=== PATIENT | female | born 1940 | race Caucasian/White ===

== ENCOUNTER 2016-12-31 14:42 | Inpatient (IN) ==
--- NOTE | 2016-12-31 16:30 | Diag Imaging Result Doc PS360 ---
EXAM: CHEST-1 VIEW INDICATION: FALL COMPARISON: None. FINDINGS: There is a calcified granuloma in the right upper lung zone. The lungs are grossly clear, otherwise. There is no discrete pleural fluid collection. The cardiomediastinal silhouette and central vasculature are grossly unremarkable. IMPRESSION: No evidence of acute pathology. Electronically signed by Gio Vogel 12/31/2016 4:28 PM
--- NOTE | 2016-12-31 16:31 | Diag Imaging Result Doc PS360 ---
EXAM: X-RAY PELVIS W/HIP 2-3VW LT HISTORY: fall COMMENT: There is an intertrochanteric fracture with comminution in the left femur. There is generalized osteopenia of the regional skeleton. IMPRESSION: Left intertrochanteric fracture. Electronically signed by Lang Birmingham 12/31/2016 4:28 PM
[2016-12-31 17:02] LABS: MANUAL DIFF NEEDED? NO
[2016-12-31 17:04] LABS: BASO% 0.1 % (0.0-0.8); HEMATOCRIT 35.5 % (37.0-47.0); HEMOGLOBIN 11.5 g/dL (12.0-16.0); IMM GRAN# 0.02 X1000 (0.0-0.04); IMM GRAN% 0.2 % (0.0-0.5); LYMPH# 0.78 X1000 (1.2-3.4); LYMPH% 8.9 % (20.5-51.1); MCH 31.8 PG (27-31); MCHC 32.4 g/dL (33-37); MCV 98.1 FL (81-99); MONO# 0.64 X1000 (0.11-0.59); MONO% 7.3 % (1.7-9.3); NEUT% 83.5 % (42.2-75.2); PLT 292 X1000 (130-400); RBC 3.62 XMIL (4.2-5.4)
[2016-12-31 17:35] LABS: AGAP 11; ALKALINE PHOSPHATASE 85 U/L (32-104); BUN 13 mg/dL (8-22); CALCIUM 9.4 mg/dL (8.8-10.2); CHLORIDE 101 mmol/L (98-107); COSMO 280; GOT 17 U/L (10-30); GPT 10 U/L (10-36); POTASSIUM 4.4 mmol/L (3.5-5.1); SODIUM 140 mmol/L (136-145); TCO2 28 mmol/L (25-35)
--- NOTE | 2016-12-31 17:59 | PROVIDER DOCUMENTATION ---
This chart was entered by Radha Menard Scribe, acting as scribe for Ander Mitchell MD. HPI-Musculoskeletal Pain/Inj - GENERAL Chief Complaint: Fall Stated Complaint: FALL Time Seen by Provider: 12/31/16 15:44 Source: patient - HX OF PRESENT ILLNESS-MUSKULOSKELTAL Nature of Presenting Problem: Pt is a 76 yof who came to the ED with a cc of falling. Pt reports today she got up and slipped on her left leg. PT left leg is is shortened and everted. Quality of Pain: reports: sharp Severity in ED: moderate Onset/Duration: just prior to arrival Timing: still present Modifying Factors: improves with: movement Locality of Occurance: Home Similar Symptoms Previously?: No Recently seen or treated by another doctor?: No - FALL INJURY Location of Pain/Injury: reports: lower extremity (left) Pain Radiation: reports: no radiation Reason for Fall: reports: tripped Loss of Consciousness: no loss of consciousness Review of Systems - Adult - REVIEW OF SYSTEMS - ADULT Constitutional: denies: chills, fever Eyes: reports: no symptoms reported Ears, Nose, Mouth & Throat: denies: sinus problem, loose teeth Cardiovascular: reports: no symptoms reported Respiratory: reports: no symptoms reported Gastrointestinal: reports: no symptoms reported Genitourinary: reports: no symptoms reported Musculoskeletal: reports: bone pain (left leg). denies: joint swelling, neck pain Integumentary: reports: no symptoms reported Neurological: reports: no symptoms reported Psychiatric: reports: no symptoms reported Endocrine: reports: no symptoms reported Hematologic/Lymphatic: reports: no symptoms reported Allergic/Immunologic: reports: no symptoms reported All Other Systems: Reviewed and Negative Past History - Adult - PAST MEDICAL HISTORY-ADULT Review of Records: reports: Nursing Assessment Review Major Childhood Illnesses: reports: denies history Cardiovascular: reports: HTN Respiratory: reports: denies history Gastrointestinal: reports: denies history Obstetrical/Gynecological: reports: denies history Genitourinary: reports: denies history Musculoskeletal: reports: denies history Neurological: reports: denies history Endocrine/Immune: reports: denies history Other Conditions: reports: denies history - PRIOR SURGERIES/PROCEDURES Surgical/Procedure History: reports: appendectomy, cholecystectomy - IMMUNIZATION STATUS Childhood Immunizations: See Nurse Assessment Flu Vaccine: See Nurse Assessment - FAMILY HISTORY Family History: reviewed, not pertinent Physical Exam-Injury Related - Physical Exam-Injury Related General Appearance: appears well, alert, moderate distress Eyes: PERRL/EOMI, pink conjunctivae Head, Ears, Nose, Mouth & Throat: normocephalic/atraumatic, moist mucous membranes Neck: non-tender, full range of motion Respiratory: chest non-tender, lungs clear Cardiovascular: normal peripheral pulses, regular rate, rhythm Abdominal Exam: normal bowel sounds, non tender, soft Back Exam: normal inspection, no CVA tenderness Extremity: swelling (left left), tenderness (left leg), other (left leg shortened and everted). negative: normal range of motion, normal gait Integumentary: warm/dry Neurologic: grossly normal Psych/Mental Status: normal mood/affect, normal thought content, normal thought process, oriented x 3 Progress - PLAN OF CARE/RESULTS Progress/Plan/Lab Results: Vital Signs - 8 hr 12/31/16 14:55 Temperature 98.9 F Pulse Rate 82 Respiratory Rate 16 Blood Pressure 128/61 O2 Sat by Pulse Oximetry 98 Laboratory Results - last 24 hr 12/31/16 12/31/16 16:25 16:25 WBC 8.78 RBC 3.62 L Hgb 11.5 L Hct 35.5 L MCV 98.1 MCH 31.8 H MCHC 32.4 L RDW Std Deviation 12.1 Plt Count 292 MPV 10.0 Immature Gran % (Auto) 0.2 Neut % (Auto) 83.5 H Lymph % (Auto) 8.9 L Stewart % (Auto) 7.3 Eos % (Auto) 0.0 Baso % (Auto) 0.1 Immature Gran # (Auto) 0.02 Neut # (Auto) 7.33 H Lymph # (Auto) 0.78 L Stewart # (Auto) 0.64 H Eos # (Auto) 0.00 Baso # (Auto) 0.01 Sodium 140 Potassium 4.4 Chloride 101 Carbon Dioxide 28 Anion Gap 11 BUN 13 Creatinine 0.7 Estimated GFR/1.73 m2 > 60 BUN/Creatinine Ratio 19 Glucose 103 Calculated Osmolality 280 Calcium 9.4 Total Bilirubin 0.60 AST 17 ALT 10 Alkaline Phosphatase 85 Total Protein 7.0 Albumin 4.0 Globulin 3.0 Albumin/Globulin Ratio 1.3 Orders Category Date Time Status CHEST-1 VIEW [RAD] Stat Exams 12/31/16 16:03 Completed XRAY PELVIS W/HIP 2-3VW LT [RAD] Stat Exams 12/31/16 15:45 Completed CBC WITH ELECTRONIC DIFF [HEME] Stat Lab 12/31/16 16:25 Completed COMPREHENSIVE METABOLIC PANEL [CHEM] Stat Lab 12/31/16 16:25 Completed UA NIMS W/REFLEX CULT [URINALYSIS] Stat Lab 12/31/16 17:55 Ordered Result Diagrams: 12/31/16 16:25 12/31/16 16:25 - XRAY 1 XRAY: Left XRAY Study: Pelvis (left intertrochanteric fracture) Departure - Departure Time of Disposition Decision: 17:57 DIAGNOSIS: Hip fracture, left Qualifiers: Encounter type: initial encounter Fracture type: closed Qualified Code(s): S72.002A - Fracture of unspecified part of neck of left femur, initial encounter for closed fracture Disposition: ADMITTED INPATIENT 09 Certified Medical Emergency: Emergent Condition: Good - Critical Care Note This patient required my direct & personal management of CC.: No This chart was documented by the indicated scribe, (Radha Menard Scribe) and accurately reflects the services I performed and decisions made by me, Ander Mitchell MD, as attested by the provider's signature.
[2016-12-31 18:04] LABS: URINE CULTURE NEEDED? NO; URINE MICRO REVIEW NEEDED? NO; URINE SOURCE CATH
[2016-12-31] MEDS ORDERED: MORPHINE IV PRN (18:08)
[2016-12-31] MEDS ORDERED: ZOFRAN IV PRN ×2 (18:10→21:02)
[2016-12-31] MEDS ORDERED: POTASSIUM CHLORIDE 10 MEQ in NS 1,000 ML IV ONE (18:12)
[2016-12-31 18:15] LABS: BILIRUBIN URINE NEGATIVE (NEGATIVE); BLOOD URINE NEGATIVE (NEGATIVE); COLOR YELLOW; GLUCOSE URINE NEGATIVE (NEGATIVE); LEUKOCYTES URINE NEGATIVE (NEGATIVE); NITRITE URINE NEGATIVE (NEGATIVE); PH URINE 7.5; PROTEIN URINE NEGATIVE (NEGATIVE); SP GRAVITY URINE 1.014; TURBIDITY URINE CLEAR (CLEAR); UROBILINOGEN URINE NORMAL (NORMAL)
[2016-12-31 18:17] LABS: UR EPITHELIAL CELLS <10 /HPF (<10); URINE BACTERIA NEGATIVE /HPF; URINE RBC <10 /HPF (<10); URINE WBC <10 /HPF (<10)
[2016-12-31] MEDS ORDERED: LABETALOL IV PRN ×2 (18:17→19:16)
--- NOTE | 2016-12-31 19:03 | HISTORY AND PHYSICAL ---
HISTORY OF PRESENT ILLNESS: Ms. Hermosillo, who is a 76-year-old, white female, a known case of hypertension, hyperlipidemia, hypothyroidism, degenerative arthritis which affects both knees, was admitted because of fractured hip. She fell this morning and she fell as she was getting out of the bathroom and she could not get up. She was put by someone in the bed. She waited for about 5 hours to come to the emergency room. She has a known case of severe arthritis in both her knees and has hypertension as well as hyperlipidemia and hypothyroidism. She also has a history of severe history of anxiety. She was seen in the emergency room and found to have fracture of hip on the left side. We discussed with Dr. Hamilton who is going to see her later on and operate her in the morning. We will keep her n.p.o. 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 REVIEW OF SYSTEMS: Other than left hip pain, she does not have any other problems at the present time. MEDICATIONS: Include Lopressor, as well as cholesterol medications. She also takes Cymbalta for pain. PHYSICAL EXAMINATION: VITAL SIGNS: Reveal temperature normal, pulse 82 per minute, respiratory rate 16 per minute, blood pressure 128/61. HEENT: Head normocephalic. Pupils PERRLA. Fundus examination normal. ENT examination unremarkable. NECK: Supple. JVP normal. LYMPHATICS: There is no evidence of lymphadenopathy, thyroid enlargement, pedal edema, calf tenderness, anemia, cyanosis or clubbing. Pedal pulses well felt. BREAST: Exam normal. CHEST: Normal inspection. LUNGS: Clear on auscultation. PMI in the normal position. HEART: Sounds normal. No murmur, gallop or rub noted. ABDOMEN: Nondistended. Hernial orifices normal. No guarding, rigidity, free fluid, masses, or organomegaly. Bowel sounds normal. RECTAL: Deferred. LYRIC WRITER: Higher functions normal. Cranial nerves normal. Motor and sensory system examination unremarkable. Deep tendon reflexes normal. Plantars downgoing. Skull and spine examination normal for age. No cerebellar signs or signs of meningeal irritation. LOCOMOTOR EXAM/SKIN EXAM: She has deformity of the left hip and movements are very painful. She has fracture of the left hip. IMPRESSION: 1. Fracture left hip. 2. History of hypertension. 3. Hyperlipidemia. 4. Osteoarthritis of both knees. cc: Jose Frias MD
[2016-12-31] MEDS: MORPHINE IV PRN (21:54)
[2017-01-01] MEDS: MORPHINE IV PRN ×6 (00:45→15:15)
[2017-01-01 05:33] LABS: MANUAL DIFF NEEDED? NO
[2017-01-01 05:35] LABS: BASO% 0.3 % (0.0-0.8); EOS# 0.03 X1000 (0.0-0.7); EOS% 0.4 % (0.0-10.0); HEMATOCRIT 35.3 % (37.0-47.0); HEMOGLOBIN 11.3 g/dL (12.0-16.0); LYMPH# 1.25 X1000 (1.2-3.4); LYMPH% 16.1 % (20.5-51.1); MCH 31.7 PG (27-31); MCV 98.9 FL (81-99); MONO# 0.76 X1000 (0.11-0.59); MONO% 9.8 % (1.7-9.3); MPV 9.7 FL (7.4-10.4); NEUT% 73.4 % (42.2-75.2); PLT 293 X1000 (130-400); RBC 3.57 XMIL (4.2-5.4)
[2017-01-01 05:49] LABS: AGAP 10; ALBUMIN 4.1 g/dL (3.5-5.0); ALKALINE PHOSPHATASE 84 U/L (32-104); BUN 12 mg/dL (8-22); CALCIUM 8.9 mg/dL (8.8-10.2); CHLORIDE 99 mmol/L (98-107); COSMO 275; GOT 16 U/L (10-30); GPT 9 U/L (10-36); POTASSIUM 4.3 mmol/L (3.5-5.1); SODIUM 138 mmol/L (136-145); TCO2 29 mmol/L (25-35); TOTAL BILIRUBIN 0.74 mg/dL (0.20-1.00); TOTAL PROTEIN 6.9 g/dL (6.3-8.3)
--- NOTE | 2017-01-01 07:26 | EKG Report ---
Test Performed on : 01/01/2017 06:18:37 AM Test Reason : CP Blood Pressure : / mmHG Vent. Rate : 076 BPM Atrial Rate : 076 BPM P-R Int : 154 ms QRS Dur : 082 ms QT Int : 404 ms P-R-T Axes : 062 -10 047 degrees QTc Int : 454 ms Normal sinus rhythm. Normal ECG No previous ECGs available Confirmed by Jos BARGER, Markel Schuler ([id number]) on 01/02/2017 7:02:01 AM
--- NOTE | 2017-01-01 07:33 | CONSULTATION ---
DATE OF CONSULTATION: 01/01/2017 HISTORY OF PRESENT ILLNESS: Ms. Hermosillo is a 76-year-old female who presented to the emergency department yesterday for evaluation of her left hip. She was in her bathroom and she fell, and injured this left hip. She was found to have a hip fracture. She was admitted to the hospital per the medicine service. She denies any loss of consciousness really. She said that she fell. Most of her pain is when she moves the hip at all and feels better when she keeps it completely still. PAST MEDICAL HISTORY: Hypertension, hyperlipidemia, hypothyroidism, osteoarthritis of the knees. PAST SURGICAL HISTORY: Appendectomy, cholecystectomy, hysterectomy, and tumor removal from her neck. MEDICATIONS: Lopressor, Cymbalta. ALLERGIES: Sulfa. REVIEW OF SYSTEMS: Positive for left hip pain. All other systems are essentially negative. PHYSICAL EXAMINATION: General: Well-developed, well-nourished female in no acute distress. Head and Neck: Normocephalic, atraumatic. Respirations: Nonlabored. Cardiovascular: Regular rate. Abdomen: Nondistended. Left Lower Extremity Examination: It is shortened and externally rotated. She has a little bit of numbness to the toes but she is able to move her foot very well. There is a 2+ DP pulse. Tenderness to the left hip. No skin ulcerations or abrasions seen over there. No tenderness to palpation to the right side. No tenderness to palpation to bilateral upper extremities. RADIOGRAPHS: Several views of the left hip show a high intertrochanteric fracture with displacement. ASSESSMENT: Left intertrochanteric fracture. PLAN: I discussed with Ms. Hermosillo today that we will plan on operative intervention. I went over with her about left trochanteric femoral nailing. I went over the procedure, risks, benefits, and potential complications. Risks include but are not limited to infection, wound healing problems, damage to nerves, arteries, veins, numbness, malunion, nonunion, hardware related issues, continued pain, DVT, and anesthesia related risks. After discussing these with the patient, she expressed understanding and wished to proceed. She will be NPO today. We will get her on the schedule as soon as we can. cc: MD Jose Dejesus MD
--- NOTE | 2017-01-01 09:27 | PROGRESS NOTE ---
DATE: 01/01/2017 Ms. Hermosillo is doing better. She is still in some pain with the left hip. Her lungs are clear. The EKG is normal. Overall condition is unchanged. She is going to have surgery this afternoon. I discussed about the rehabilitation process of physical therapy and rehabilitation process after the surgery to her . We will get a consultation with social service also. cc: Jose Frias MD
[2017-01-01] MEDS: WELLBUTRIN XL PO SCH (10:56)
[2017-01-01] MEDS: ZIAC 2.5/6.25 MG PO SCH (10:57)
[2017-01-01] MEDS ORDERED: KEFZOL 1 GM/D5W 1 GM/50 ML IVPB ONE (11:56)
[2017-01-01] MEDS ORDERED: DIPRIVAN 1% ONE (13:24)
[2017-01-01] MEDS ORDERED: FENTANYL ONE (13:25)
[2017-01-01] MEDS ORDERED: ZOFRAN IV PRN (14:05)
[2017-01-01] MEDS ORDERED: HALDOL IV PRN (14:05)
[2017-01-01] MEDS ORDERED: MILK OF MAGNESIA PO PRN (14:05)
--- NOTE | 2017-01-01 14:13 | OPERATIVE NOTE ---
PROCEDURE DATE: 01/01/2017 PREOPERATIVE DIAGNOSIS: Left intertrochanteric fracture. POSTOPERATIVE DIAGNOSIS: Left intertrochanteric fracture. PROCEDURE: Left trochanteric femoral nailing. SURGEON: Juan Hamilton MD SR. PRICING ANALYST: Kailey Mariano NP and Tapan Cota RN ANESTHESIA: General with LMA. ESTIMATED BLOOD LOSS: 50 mL. IMPLANT: Synthes 11 x 340 trochanteric femoral nail with no distal interlocking screws. DISPOSITION: To PACU, hemodynamically stable. INDICATION FOR PROCEDURE: Ms. Molly Hermosillo a 76-year-old female, who presented to the emergency department yesterday with a hip fracture. She was admitted per the medicine service and made NPO after midnight. I discussed with her about surgery and she expressed understanding and wished to proceed. DESCRIPTION OF PROCEDURE: Ms. Hermosillo was identified in the preoperative holding area. The left hip was marked as the correct surgical site. She was then wheeled to the operating room, kept supine on her own bed, induced under general anesthesia. LMA was placed. She was then moved to the fracture table. Slight traction was pulled across that left hip. Preop fluoroscopy showed that we had a good reduction with some traction and was a high intertrochanteric. The left hip was then prepped with ChloraPrep and draped in normal sterile fashion. Surgical pause was performed. We identified the correct patient, the correct side, and the correct procedure. Preop antibiotics were given, which was IV Ancef. Then made an incision superior to the greater trochanter. Dissection was carried down through the deep fascia and we were able to get a guidewire in good position, AP and lateral views. I then drilled that area and we actually drilled really slow so as to not kick this thing into varus with the nail. I then got my guidewire down, sized it, reamed over with a size 12 reamer and then placed in the nail 11 x 340. Then I was able to get my guidewire center-center in the femoral head on AP and lateral views and drilled it and then put the helical blade over the wire and then decompressed as much as I could to get some good compression at the fracture site. The blade was then locked in with the nail locking mechanism and everything was removed. Final images were taken, which showed we had good position of our fracture. It looked like we were not in varus and then good position of our yonis and screw as well. I then irrigated everything copiously with normal saline. Deep fascia was closed with 0 Vicryl, 2-0 Vicryl for the subcutaneous, and juana on the skin. Adaptic, 4x4s, and Island dressings were placed. The patient was then taken out of traction, moved to her own bed and taken to the PACU in stable condition. Postoperatively, patient will be weight bear as tolerated left lower extremity and I will see her in the morning. She will start Lovenox for DVT prophylaxis starting tomorrow morning. cc: MD Jose Dejesus MD
[2017-01-01] MEDS: TYLENOL PO SCH (14:25)
[2017-01-01] MEDS ORDERED: ZOFRAN ONE (14:36)
[2017-01-01] MEDS ORDERED: LR 1,000 ML ONE (14:37)
[2017-01-01] MEDS ORDERED: STERILE WATER INJ. ONE (14:37)
[2017-01-01] MEDS ORDERED: OFIRMEV 1000 MG/ISOTONIC SOLN 1,000 MG/100 ML BOTTLE ONE (14:37)
[2017-01-01] MEDS ORDERED: PIGGYBACK SET 7393 ONE (14:37)
[2017-01-01] MEDS ORDERED: XYLOCAINE-MPF 2% ONE (14:37)
[2017-01-01] MEDS: OXY IR PO PRN ×2 (17:15→21:00)
[2017-01-01] MEDS: NEURONTIN PO SCH (21:00)
[2017-01-01] MEDS: PERIDEX MT SCH (21:01)
[2017-01-01] MEDS: COLACE PO SCH (21:01)
[2017-01-01] MEDS: KEFZOL 1 GM/D5W 1 GM/50 ML IVPB IV SCH (21:01)
[2017-01-02] MEDS: OXY IR PO PRN ×2 (00:54→04:50)
[2017-01-02] MEDS: TYLENOL PO SCH ×3 (00:54→16:50)
[2017-01-02] MEDS: KEFZOL 1 GM/D5W 1 GM/50 ML IVPB IV SCH ×2 (04:50→11:42)
[2017-01-02 05:27] LABS: HEMATOCRIT 31.4 % (37.0-47.0); HEMOGLOBIN 10.1 g/dL (12.0-16.0)
[2017-01-02 05:38] LABS: AGAP 10; BUN 13 mg/dL (8-22); CALCIUM 8.2 mg/dL (8.8-10.2); CHLORIDE 97 mmol/L (98-107); COSMO 270; POTASSIUM 3.8 mmol/L (3.5-5.1); SODIUM 134 mmol/L (136-145); TCO2 27 mmol/L (25-35)
[2017-01-02] MEDS: LOVENOX SUBQ SCH (06:34)
[2017-01-02] MEDS: MORPHINE IV PRN ×3 (06:34→22:02)
[2017-01-02] MEDS: FERROUS SULFATE PO SCH (08:36)
[2017-01-02] MEDS ORDERED: MORPHINE IV PRN (09:00)
--- NOTE | 2017-01-02 09:21 | PROGRESS NOTE ---
DATE: 01/02/2017 Ms. Hermosillo is in about the same general condition. She had surgery yesterday. She says she is in a lot of pain. We will try to go up on the morphine dose or change the medication for pain. She is going to start getting the physical therapy. We are going to work for rehab at [facility] when we can. -5 cc: Jose Frias MD
[2017-01-02] MEDS: NEURONTIN PO SCH ×2 (10:24→22:03)
[2017-01-02] MEDS: PERIDEX MT SCH ×2 (10:25→22:02)
[2017-01-02] MEDS: WELLBUTRIN XL PO SCH (10:25)
[2017-01-02] MEDS: ZIAC 2.5/6.25 MG PO SCH (10:45)
--- NOTE | 2017-01-02 13:15 | PROGRESS NOTE ---
DATE: 01/02/2017 SUBJECTIVE: Ms. Hermosillo resting in bed. Pain seems actually very well controlled. OBJECTIVE: Left lower extremity exam, dressing is clean, dry, and intact. Her alignment looks comparable to the right side. She is neurovascular intact to left lower extremity. She is moving her toes very well. She has good sensation to light touch to the toes and good dorsiflexion and plantar flexion of the ankle. ASSESSMENT: Status post left trochanteric femoral nailing for hip fracture. PLAN: I think Ms. Hermosillo is doing really well. She can weight be weight bear as tolerated left lower extremity. She is going to physical therapy today and we will continue to follow. cc: MD Jose Dejesus MD
[2017-01-02] MEDS: COLACE PO SCH (22:02)
[2017-01-03] MEDS: TYLENOL PO SCH ×3 (00:53→18:50)
[2017-01-03 05:07] LABS: HEMATOCRIT 27.1 % (37.0-47.0); HEMOGLOBIN 8.6 g/dL (12.0-16.0)
[2017-01-03] MEDS: LOVENOX SUBQ SCH (05:43)
[2017-01-03] MEDS: OXY IR PO PRN ×3 (05:48→21:29)
--- NOTE | 2017-01-03 09:06 | PROGRESS NOTE ---
DATE: 01/03/2017 Ms. Hermosillo is doing better. Her hemoglobin has gone down some; however, this is after the surgery. We will repeat it again tomorrow at 10, and if it goes further down, we may transfuse her. She is already on iron tablet. Overall condition is unchanged. We will continue with the current management. cc: Jose Frias MD
[2017-01-03] MEDS: WELLBUTRIN XL PO SCH (10:08)
[2017-01-03] MEDS: NEURONTIN PO SCH ×2 (10:09→21:30)
[2017-01-03] MEDS: PERIDEX MT SCH ×2 (10:10→21:29)
[2017-01-03] MEDS: FERROUS SULFATE PO SCH (10:10)
[2017-01-03] MEDS: ZIAC 2.5/6.25 MG PO SCH (10:18)
[2017-01-03] MEDS: COLACE PO SCH (21:30)
[2017-01-04] MEDS: TYLENOL PO SCH ×4 (02:41→23:36)
[2017-01-04] MEDS: OXY IR PO PRN ×3 (04:21→16:17)
[2017-01-04] MEDS: LOVENOX SUBQ SCH (06:05)
[2017-01-04] MEDS: FERROUS SULFATE PO SCH (07:40)
[2017-01-04] MEDS: WELLBUTRIN XL PO SCH ×2 (07:40→08:16)
[2017-01-04] MEDS: PERIDEX MT SCH ×3 (07:42→23:36)
[2017-01-04] MEDS: NEURONTIN PO SCH ×3 (07:42→23:36)
[2017-01-04] MEDS: ZIAC 2.5/6.25 MG PO SCH ×2 (07:44→08:16)
--- NOTE | 2017-01-04 15:34 | PROGRESS NOTE ---
DATE: 01/04/2017 SUBJECTIVE: Patient doing well. Awaiting rehab placement in 2 days. OBJECTIVE: Vital signs: Afebrile, pulse 78, respirations 20, blood pressure 129/39, O2 saturation room air 97%. BM x1 this morning. CV: RRR without murmur. Lungs: CTA. Abdomen: Soft, NT, ND. No mass. No HSM. Extremities: No edema. LAB DATA: Shows hemoglobin of 9.0 stable, hematocrit 28. ASSESSMENT: 1. Postop left hip fracture repair/nail placement. 2. Hypertension. 3. Hyperlipidemia. 4. Osteoarthritis. PLAN: Continue physical therapy in prep for rehab placement. Continue Ziac and current medications. cc: MD Jose Harper MD
[2017-01-04] MEDS: COLACE PO SCH (23:36)
[2017-01-05] MEDS: OXY IR PO PRN ×2 (05:07→21:32)
[2017-01-05] MEDS: LOVENOX SUBQ SCH (05:16)
[2017-01-05] MEDS: TYLENOL PO SCH ×3 (05:16→18:34)
--- NOTE | 2017-01-05 09:32 | PROGRESS NOTE ---
DATE: 01/05/2017 SUBJECTIVE: Ms. Hermosillo is lying in bed this morning. Pain seems very well controlled. She is in good spirits. OBJECTIVE: Left Lower Extremity Examination: Dressings are clean, dry, and intact. Overall alignment looks good. She is neurovascularly intact to the left lower extremity. ASSESSMENT: Status post left trochanteric femoral nailing. PLAN: I think Ms. Hermosillo is doing really well. I am okay with her being weightbearing as tolerated. Physical therapy will continue to work with her. It looks like they are going to try to get everything set up for discharge out of the hospital tomorrow which I am okay with. I would like to see her back in 2-3 weeks in clinic where we can get some x-rays. cc: MD Jose Dejesus MD
[2017-01-05] MEDS: WELLBUTRIN XL PO SCH (10:06)
[2017-01-05] MEDS: NEURONTIN PO SCH ×2 (10:06→21:33)
[2017-01-05] MEDS: FERROUS SULFATE PO SCH (10:06)
[2017-01-05] MEDS: ZIAC 2.5/6.25 MG PO SCH (10:06)
[2017-01-05] MEDS: PERIDEX MT SCH ×2 (10:06→21:33)
--- NOTE | 2017-01-05 14:12 | PROGRESS NOTE ---
DATE: 01/05/2017 SUBJECTIVE: Patient continues to convalesce well after hip fracture and nail placement. OBJECTIVE: Afebrile. Vital signs stable. CV: RRR without murmur. Lungs: CTA. Abdomen: Soft, nontender, nondistended. No mass or organomegaly. Extremities: No calf tenderness, cords or edema. ASSESSMENT: 1. Postop left hip fracture and repair. 2. Hypertension. 3. Hyperlipidemia. 4. Osteoarthritis. PLAN: Patient continuing on physical therapy and on her home medication of Ziac for blood pressure control. She is doing well and plans for rehab placement are noted for tomorrow. Hematocrit has stabilized out at about 9. cc: MD Jose Harper MD
[2017-01-05] MEDS: COLACE PO SCH (21:32)
[2017-01-06] MEDS: TYLENOL PO SCH ×2 (00:35→06:32)
[2017-01-06] MEDS: LOVENOX SUBQ SCH (06:32)
[2017-01-06] MEDS: WELLBUTRIN XL PO SCH (09:16)
[2017-01-06] MEDS: NEURONTIN PO SCH (09:16)
[2017-01-06] MEDS: PERIDEX MT SCH (09:17)
[2017-01-06] MEDS: FERROUS SULFATE PO SCH (09:17)
[2017-01-06] MEDS: ZIAC 2.5/6.25 MG PO SCH (09:17)
--- NOTE | 2017-01-06 09:32 | PROGRESS NOTE ---
DATE: 01/06/2017 SUBJECTIVE: Ms. Hermosillo is resting in bed this morning. She had a really good night last night. She had a good night's rest. OBJECTIVE: Left lower extremity exam: Dressing is clean, dry, and intact. She is able to move the toes. She is doing very well. ASSESSMENT: Status post left trochanteric femoral nailing. PLAN: I think Ms. Hermosillo is doing really well. I am okay with her being discharged. I would like to see her back in 2-3 weeks in my clinic. cc: MD Jose Dejesus MD
--- NOTE | 2017-01-06 10:58 | DISCHARGE SUMMARY ---
ADMISSION DATE: 12/31/2016 DISCHARGE DATE: 01/06/2017 HISTORY OF PRESENT ILLNESS: Ms. Hermosillo, who is a 76-year-old, white female, was admitted with left hip fracture. She has hypertension, degenerative arthritis, hyperlipidemia. Initial hemoglobin was 11.4. After surgery, it was 9 g. Electrolytes are normal. BUN and creatinine were normal. Glucose was normal except for only one level that was 124. Urinalysis was unremarkable. Her left hip and pelvis x-rays revealed that she had a left intertrochanteric fracture. Chest x- ray was unremarkable. COURSE IN THE HOSPITAL: She was admitted. Dr. Hamilton was consulted. He operated on her on the next day. She has done physical therapy and she is doing quite well. She is walking, does some weightbearing. We will transfer her to [facility] for rehab. We will continue the current management. cc: Jose Frias MD
[2017-01-06 11:09] VITALS: BP 129/55
--- NOTE | 2017-01-17 06:40 | DISCHARGE SUMMARY ---
ADMISSION DATE: 12/31/2016 DISCHARGE DATE: 01/06/2017 DISCHARGE SUMMARY ADDENDUM: Ms. Hermosillo was admitted for a hip fracture. She had surgery. Post surgery her hemoglobin dropped from 11.5 to 8.6. This was acute blood loss anemia. cc: Jose Frias MD
== END 2017-01-06 13:03 ==
LOC: ED 14:42 → 4N 18:48
PROVIDERS: ADMIT Internal Medicine; ATTEND Internal Medicine